=== PATIENT | female | born 1990 | race Caucasian/White ===

== ENCOUNTER 2018-11-25 19:10 | Emergency (ER) | payer OTHER ==
[2018-11-25] MEDS ORDERED: NS 0.9% 1000 ML** 2,000 ML IV ONE (19:53)
[2018-11-25] MEDS ORDERED: Ondansetron ODT TAB* 4 MG SL ONE (19:53)
[2018-11-25] MEDS ORDERED: Ondansetron INJ* 2 MG/ML VIAL IV ONE (20:04)
[2018-11-25 20:28] LABS: ABS Basophils 0.1 10^3/ul (0-0.2); ABS Eosinophils 0 10^3/ul (0-0.6); ABS Lymphocytes 1.7 10^3/ul (1.0-4.8); ABS Monocytes 0.3 10^3/ul (0-0.8); ABS Neutrophils 6.3 10^3/ul (1.5-7.7); ABS Nucleated RBC 0 10^3/ul; Eosinophil % 0.2 %; Hematocrit 45 % (35-47); Hemoglobin 14.7 g/dl (12.0-16.0); Lymphocyte % 20.1 %; Mean Corpuscular HGB Conc 33 g/dl (31-36); Mean Corpuscular Hemoglobin 29 pg (27-31); Mean Corpuscular Volume 89 fL (80-97); Mean Platelet Volume 8.5 fL (7.4-10.4); Nucleated Red Blood Cells % 0; Platelet Count 261 10^3/ul (150-450); Red Blood Count 4.99 10^6/ul (4.00-5.40); Red Cell Distribution Width 13 % (10.5-15); White Blood Count 8.3 10^3/ul (3.5-10.8)
[2018-11-25 20:45] LABS: ALT 16 U/L (7-52); AST 18 U/L (13-39); Albumin/Globulin Ratio 1.7 (1-3); Alkaline Phosphatase 58 U/L (34-104); Anion Gap 7 mmol/L (2-11); BUN/Creatinine Ratio 13.3 (8-20); Blood Urea Nitrogen 11 mg/dL (6-24); CO2 Carbon Dioxide 24 mmol/L (22-32); Calcium 9.9 mg/dL (8.6-10.3); Chloride 107 mmol/L (101-111); EGFR Non-African American 81.9 (>60); Globulin 2.9 g/dL (2-4); Glucose 96 mg/dL (70-100); Potassium 4.1 mmol/L (3.5-5.0); Sodium 138 mmol/L (135-145); Total Protein 7.9 g/dL (6.4-8.9)
[2018-11-25 20:51] LABS: HCG Pregnancy < 0.60 mIU/mL
--- NOTE | 2018-11-25 21:01 | ED ---
GI/ HPI - HPI Summary HPI Summary: 27-year-old female presents with left lower quadrant pain for the past couple days. States she started having diarrhea yesterday. She never had this pain before. No noticed some blood when she wipes. Had only trace amount. No nausea or vomiting. She denies any fever. She denies any cough. No urinary symptoms. No abnormal vaginal discharge. States she's had a normal pap smear a couple weeks ago. No one else is sick. Did not eat anything different. has not had a normal appetite today. - History of Current Complaint Chief Complaint: EDAbdPain Time Seen by Provider: 11/25/18 19:59 Stated Complaint: ABD PAIN Pain Intensity: 6 - Allergy/Home Medications Allergies/Adverse Reactions: Allergies Allergy/AdvReac Type Severity Reaction Status Date / Time amoxicillin Allergy Rash Verified 11/25/18 19:29 Home Medications: Home Medications Norethindrone AC-Eth Estradiol [Harry .5 1.5-30 mg-Mcg] 1 tab PO DAILY 11/25 [History Confirmed 11/25/18] PMH/Surg Hx/FS Hx/Imm Hx Endocrine/Hematology History: Denies: Hx Anticoagulant Therapy Respiratory History: Denies: Hx Asthma Infectious Disease History: No Infectious Disease History: Denies: Traveled Outside the [place] in Last 30 Days - Family History Known Family History: Positive: Other - no GI disorders - Social History Alcohol Use: None Substance Use Type: Reports: None Smoking Status (MU): Never Smoked Tobacco Review of Systems Negative: Fever Negative: Chest Pain Negative: Shortness Of Breath Positive: Abdominal Pain, Diarrhea. Negative: Vomiting, Nausea All Other Systems Reviewed And Are Negative: Yes Physical Exam Triage Information Reviewed: Yes Vital Signs On Initial Exam: Initial Vitals Temp Pulse Resp BP Pulse Ox 99.2 F 88 16 161/98 98 11/25/18 19:25 11/25/18 19:25 11/25/18 19:25 11/25/18 19:25 11/25/18 19:25 Vital Signs Reviewed: Yes Appearance: Positive: Well-Appearing Skin: Positive: Warm, Dry Head/Face: Positive: Normal Head/Face Inspection Eyes: Positive: Normal, EOMI, JUDY, Conjunctiva Clear ENT: Positive: Normal ENT inspection, Pharynx normal, TMs normal Respiratory/Lung Sounds: Positive: Clear to Auscultation, Breath Sounds Present Cardiovascular: Positive: Normal, RRR Abdomen Description: Positive: Soft, Other: - tenderness in LLQ, no rebound. Negative: CVA Tenderness (L) Bowel Sounds: Positive: Present Musculoskeletal: Positive: Normal Neurological: Positive: Normal Psychiatric: Positive: Normal Diagnostics - Vital Signs Vital Signs Temp Pulse Resp BP Pulse Ox 11/25/18 20:13 88 149/89 97 11/25/18 19:25 99.2 F 88 16 161/98 98 - Laboratory Lab Results: Lab Results 11/25/18 11/25/18 Range/Units 20:19 20:19 WBC 8.3 (3.5-10.8) 10^3/ul RBC 4.99 (4.00-5.40) 10^6/ul Hgb 14.7 (12.0-16.0) g/dl Hct 45 (35-47) % MCV 89 (80-97) fL MCH 29 (27-31) pg MCHC 33 (31-36) g/dl RDW 13 (10.5-15) % Plt Count 261 (150-450) 10^3/ul MPV 8.5 (7.4-10.4) fL Neut % (Auto) 75.5 % Lymph % (Auto) 20.1 % [place] % (Auto) 3.5 % Eos % (Auto) 0.2 % Baso % (Auto) 0.7 % Absolute Neuts (auto) 6.3 (1.5-7.7) 10^3/ul Absolute Lymphs (auto) 1.7 (1.0-4.8) 10^3/ul Absolute Monos (auto) 0.3 (0-0.8) 10^3/ul Absolute Eos (auto) 0 (0-0.6) 10^3/ul Absolute Basos (auto) 0.1 (0-0.2) 10^3/ul Absolute Nucleated RBC 0 10^3/ul Nucleated RBC % 0 Sodium 138 (135-145) mmol/L Potassium 4.1 (3.5-5.0) mmol/L Chloride 107 (101-111) mmol/L Carbon Dioxide 24 (22-32) mmol/L Anion Gap 7 (2-11) mmol/L BUN 11 (6-24) mg/dL Creatinine 0.83 (0.51-0.95) mg/dL Est GFR ( Amer) 99.0 (>60) Est GFR (Non-Af Amer) 81.9 (>60) BUN/Creatinine Ratio 13.3 (8-20) Glucose 96 (70-100) mg/dL Calcium 9.9 (8.6-10.3) mg/dL Total Bilirubin 0.20 (0.2-1.0) mg/dL AST 18 (13-39) U/L ALT 16 (7-52) U/L Alkaline Phosphatase 58 (34-104) U/L Total Protein 7.9 (6.4-8.9) g/dL Albumin 5.0 (3.2-5.2) g/dL Globulin 2.9 (2-4) g/dL Albumin/Globulin Ratio 1.7 (1-3) Beta HCG, Quant < 0.60 mIU/mL Result Diagrams: 11/25/18 20:19 11/25/18 20:19 Lab Statement: Any lab studies that have been ordered have been reviewed, and results considered in the medical decision making process. - CT abd CT Interpretation Completed By: Radiologist Summary of CT Findings: IMPRESSION: 1. There is a small hiatal hernia and there is a small volume of oral contrast. in the distal esophagus, cannot exclude gastroesophageal reflux. 2. There may be mild descending colonic and sigmoid colonic diverticulosis and. there is subtle fat stranding adjacent to the distal descending colon. suspicious for mild acute diverticulitis or nonspecific colitis without abscess. or signs of gross perforation. - Ultrasound No standard instances Ultrasound Interpretation Completed By: Radiologist Summary of Ultrasound Findings: IMPRESSION: Normal pelvic ultrasound. Re-Evaluation - Re-Evaluation First Eval Re-Evaluation Time: 21:26 Comment: discussed u/s results GIGU Course/Dx - Course Course Of Treatment: 27-year-old female presents with left lower quadrant pain for the past couple days. States she started having diarrhea yesterday. She never had this pain before. No noticed some blood when she wipes. Had only trace amount. No nausea or vomiting. She denies any fever. She denies any cough. No urinary symptoms. No abnormal vaginal discharge. States she's had a normal pap smear a couple weeks ago. No one else is sick. Did not eat anything different. On exam tenderness left lower quadrant. No rebound. wbc normal. CRP elevated. Ultrasound normal. CT shows early diverticulitis. will treat with cipro and flagyl. gave diverticulitis diet instruction. patient understand and agrees with plan. - Diagnoses Differential Diagnoses - Female: Diverticulosis, Gastroenteritis (Viral), Gastroenteritis (Bacterial) Provider Diagnoses: Diverticulitis Discharge - Sign-Out/Discharge Documenting (check all that apply): Patient Departure Patient Received Moderate/Deep Sedation with Procedure: No - Discharge Plan Condition: Good Disposition: HOME Prescriptions: Ciprofloxacin TAB* [Cipro 500 MG TAB*] 500 mg PO BID #13 tab metroNIDAZOLE [Flagyl 500 MG TAB] 500 mg PO TID #20 tab Patient Education Materials: Diverticulitis (ED), Diverticulitis Diet (ED) Referrals: Darline Rhodes MD [Primary Care Provider] - Additional Instructions: Take ciprofloxacin twice a day for 7 days, first dose given in ED Take Flagyl every 8 hours for 7 days, first dose given in ED Follow clear liquid diet until symptoms improve Return to ED if unable to keep anything down or any new or worsening symptoms - Billing Disposition and Condition Condition: GOOD Disposition: Home
[2018-11-25 21:05] LABS: C Reactive Protein 19.94 mg/L (<8.01)
[2018-11-25] MEDS ORDERED: Iohexol 300* (CONTRAST) 10 ML SDV IV ONE (21:21)
[2018-11-25] MEDS ORDERED: Ketorolac INJ* 30 MG/ML 1 ML VIAL IV PUSH ONE (21:23)
[2018-11-25] MEDS ORDERED: metroNIDAZOLE TAB* 250 MG PO ONE (23:16)
[2018-11-25] MEDS ORDERED: Ciprofloxacin TAB* 500 MG PO ONE (23:16)
[2018-11-25 23:32] VITALS: BP 137/86
== END 2018-11-25 23:38 | disposition home or self-care (01) ==
LOC: ED 19:10
DX: K57.92 Diverticulitis of intestine, part unspecified, without perforation or abscess without bleeding (principal); K44.9 Diaphragmatic hernia without obstruction or gangrene
CPT/HCPCS: 36415; 74177; 76830; 80053; 83690; 84702; 85025; 86140; 96361; 96374; 96375; 99283; A9270-GY; J1885; J2405; Q9967

== ENCOUNTER 2019-10-25 10:48 | Emergency (ER) | payer BC ==
--- NOTE | 2019-10-25 10:58 | ED ---
GI/ HPI - HPI Summary HPI Summary: This pt is a 28 y/o female presenting to [facility] c/o abd cramping and vaginal bleeding since yesterday. Her LMP was on 09/22/19 and states she was late on her period. She notes she has been trying to get . Pt reports she took 3 home tests 1 week ago and all 3 were positive. Pt states yesterday in the early hours of the morning she began to have abd cramping, similar to when she has had her period. Yesterday later in the day she began to have vaginal bleeding, which she states is similar to her period. Denies fever, nausea, vomiting, chest pain, SOB. Pt called [facility] and was told she would get answers later in the week so she decided to come to the ED today. - History of Current Complaint Chief Complaint: EDVaginalBleeding Time Seen by Provider: 10/25/19 10:54 Stated Complaint: 4 WEEKS PREG/BLEEDING AND CRAMPING PER PT Hx Obtained From: Patient Onset/Duration: Started Hours Ago, Still Present Timing: Lasting Hours Current Severity: Moderate Pain Intensity: 4 Location of Pain: Other - lower abdomen Pain Characteristics: Cramping Associated Signs and Symptoms: Positive: Abdominal Pain. Negative: Nausea, Vomiting, Fever Additional Signs & Symptoms: Positive: Vaginal Bleeding Aggravating Factor(s): Nothing Alleviating Factor(s): Nothing - Allergy/Home Medications Allergies/Adverse Reactions: Allergies Allergy/AdvReac Type Severity Reaction Status Date / Time amoxicillin Allergy Rash Verified 11/25/18 19:29 PMH/Surg Hx/FS Hx/Imm Hx Endocrine/Hematology History: Denies: Hx Anticoagulant Therapy, Hx Diabetes Cardiovascular History: Denies: Hx Hypertension Respiratory History: Denies: Hx Asthma History: Denies: Hx Renal Disease Infectious Disease History: No Infectious Disease History: Denies: Traveled Outside the [place] in Last 30 Days - Family History Known Family History: Positive: Other - no GI disorders - Social History Alcohol Use: None Substance Use Type: Reports: None Smoking Status (MU): Never Smoked Tobacco Review of Systems Negative: Fever, Chills Negative: Chest Pain Negative: Shortness Of Breath Positive: Abdominal Pain. Negative: Vomiting, Nausea Genitourinary: Other - POSITIVE: vaginal bleeding All Other Systems Reviewed And Are Negative: Yes Physical Exam - Summary Physical Exam Summary: Appearance: The patient is well-nourished in no acute distress and in no acute pain. Skin: The skin is warm and dry and skin color reflects adequate perfusion. HEENT: The head is normocephalic and atraumatic. The pupils are equal and reactive. The conjunctivae are clear and without drainage. Nares are patent and without drainage. Mouth reveals moist mucous membranes and the throat is without erythema and exudate. The external ears are intact. The ear canals are patent and without drainage. The tympanic membranes are intact. Neck: the neck is supple with full range of motion and non-tender. There are no carotid bruits. There is no neck vein distension. Respiratory: Chest is non-tender. Lungs are clear to auscultation and breath sounds are symmetrical and equal. Cardiovascular: Heart is regular rate and rhythm. There is no murmur or rub auscultated. There is no peripheral edema and pulses are symmetrical and equal. Abdomen: The abdomen is soft and non-tender. There are normal bowel sounds heard in all four quadrants and there is no organomegaly palpated. Musculoskeletal: There is no back tenderness noted. Extremities are non-tender with full range of motion. There is good capillary refill. There is no peripheral edema or calf tenderness elicited. Neurological: Patient is alert and oriented to person, place and time. Psychiatric: The patient has an appropriate affect and does not exhibit any anxiety or depression. Triage Information Reviewed: Yes Vital Signs On Initial Exam: Initial Vitals Temp Pulse Resp BP Pulse Ox 97.7 F 94 18 149/97 97 10/25/19 10:49 10/25/19 10:49 10/25/19 10:49 10/25/19 10:49 10/25/19 10:49 Vital Signs Reviewed: Yes Procedures - Sedation Patient Received Moderate/Deep Sedation with Procedure: No Diagnostics - Vital Signs Vital Signs Temp Pulse Resp BP Pulse Ox 10/25/19 10:49 97.7 F 94 18 149/97 97 - Laboratory Result Diagrams: 10/25/19 11:12 Lab Statement: Any lab studies that have been ordered have been reviewed, and results considered in the medical decision making process. Re-Evaluation - Re-Evaluation First Eval Re-Evaluation Time: 11:56 Comment: Reviewed lab results with patient. She will be discharged home. GIGU Course/Dx - Course Course Of Treatment: Ms. Shin's HCG here was essentially negative. Given the history I think this likely represents a completed miscarriage. There is a slight chance that this is early with bleeding and I recommended she follow up in a couple days for repeat test. - Diagnoses Provider Diagnoses: Miscarriage Discharge ED - Sign-Out/Discharge Documenting (check all that apply): Patient Departure - Discharge home - Discharge Plan Condition: Stable Disposition: HOME Patient Education Materials: Miscarriage (ED) Referrals: Stephanie Herman DO [Primary Care Provider] - [facility] [Provider Group] Additional Instructions: Follow up with [facility] this week. RETURN TO THE ED FOR ANY WORSENING OR NEW SYMPTOMS. - Billing Disposition and Condition Condition: STABLE Disposition: Home - Attestation Statements Document Initiated by Navi: Yes Documenting Scribe: Melisa Medrano Provider For Whom Scribe is Documenting (Include Credential): Michael Brooks MD Scribe Attestation: Melisa Clarke, scribed for Michael Brooks MD on 10/25/19 at 1204. Scribe Documentation Reviewed: Yes Provider Attestation: The documentation as recorded by the Melisa ambrocio accurately reflects the service I personally performed and the decisions made by me, Michael Brooks MD Status of Scribe Document: Viewed
--- OUTSIDE RECORDS SUMMARY | 2019-10-25 11:13 | XMS REPORT | Continuity of Care Document ---
:1990 External Reference #:[id number] Author Name Stephanie Herman, DO Address [address] [place] [id number] Problems Active Problems Provider Date Diverticulitis Onset: 11/26/2018 Social History Type Date Description Comments Sex Unknown Tobacco Use Start: Unknown Patient has never smoked Smoking Status Reviewed: 08/30/19 Patient has never smoked Allergies, Adverse Reactions, Alerts Active Allergies Reaction Severity Comments Date Amoxicillin Anhydrous Allergic urticaria 07/02/2019 Medications Active Medications SIG Qnty Indications Ordering Provider Date Ranitidine Acid take 1 tablet by 60tabs Neyda Weldon, 08/30/2019 Cotton Tier mouth twice MD 75mg Tablets daily Fluticasone 2 sprays daily 16units Unknown 10/28/2018 Propionate per nostril 50mcg/Act Nasal Suspension Immunizations CPT Code Status Date Vaccine Lot # [id number] Given 10/28/2018 Influenza Virus Vaccine, Quadrivalent, Split Virus, Im Use 0.5ML 97750 Given 10/28/2018 Flu < 65 years 38111 Given 10/28/2018 Influenza Virus Vaccine, Quadrivalent, Split, Preservative Free 59633 Given 10/28/2018 Flumist 34593 Given 10/28/2018 Flu High Dose 64266 Given 10/28/2018 Influenza Virus Vaccine, Split, Preserv Free, Intradermal Use 00576 Given 08/07/2017 Influenza Virus Vaccine, Quadrivalent, Split, Im Use 0.25ML 79802 Given 08/07/2017 Influenza Virus Vaccine, Quadrivalent, Split, Im Use 0.25ML 09666 Given 08/07/2017 Influenza Virus Vaccine, Quadrivalent, Split, Im Use 0.25ML 04552 Given 08/07/2017 Flu < 65 years 20665 Given 08/07/2017 Influenza Virus Vaccine, Quadrivalent, Split, Preservative Free 42048 Given 08/07/2017 Flumist 03127 Given 08/07/2017 Flu High Dose 53194 Given 08/07/2017 Influenza Virus Vaccine, Split, Preserv Free, Intradermal Use 26736 Refused 02/22/2016 Influenza Virus Vaccine, Quadrivalent, Split, Im Use 0.25ML 77700 Refused 02/22/2016 HPV Gardasil 9 Vital Signs Date Vital Result Comment 09/06/2019 1:15pm BP Systolic 128 mmHg BP Diastolic 80 mmHg Heart Rate 78 /min Body Temperature 98.1 F O2 % BldC Oximetry 99 % 08/30/2019 3:02pm BP Systolic 118 mmHg BP Diastolic 62 mmHg Weight 181.00 lb Heart Rate 81 /min Body Temperature 97.7 F O2 % BldC Oximetry 98 % Results Description No Information Available Procedures Description No Information Available Medical Devices Description No Information Available Encounters Type Date Location Provider Dx Diagnosis Office Visit 08/30/2019 [facility] Neyda Weldon MD K21.9 Gastro- esophageal 3:15p reflux disease without esophagitis Assessments Date Code Description Provider 09/06/2019 R10.10 Upper abdominal pain, unspecified Stephanie Herman, DO 08/30/2019 K21.9 Gastro-esophageal reflux disease without Neyda Weldon MD esophagitis Plan of Treatment No Information Available Functional Status Description No Information Available Mental Status Description No Information Available Referrals Description No Information Available
--- OUTSIDE RECORDS SUMMARY | 2019-10-25 11:13 | XMS REPORT | Continuity of Care Document ---
:1990 External Reference #:[id number] Author Name Stephanie Herman, DO Address [address] [place] [id number] Problems Active Problems Provider Date Diverticulitis Onset: 11/26/2018 Social History Type Date Description Comments Sex Unknown Tobacco Use Start: Unknown Patient has never smoked Smoking Status Reviewed: 08/30/19 Patient has never smoked Allergies, Adverse Reactions, Alerts Active Allergies Reaction Severity Comments Date Amoxicillin Anhydrous Allergic urticaria 07/02/2019 Medications Active Medications SIG Qnty Indications Ordering Provider Date Ranitidine HCL take one tab 60caps Stephanie Gillpratima, 09/06/2019 150mg twice daily DO Capsules Fluticasone 2 sprays daily 16units Unknown 10/28/2018 Propionate per nostril 50mcg/Act Nasal Suspension History Medications Ranitidine Acid take 1 tablet by 60tabs Neyda Weldon MD 08/30/2019 - Web Manager mouth twice 09/06/2019 75mg Tablets daily Immunizations CPT Code Status Date Vaccine Lot # [id number] Given 10/28/2018 Influenza Virus Vaccine, Quadrivalent, Split Virus, Im Use 0.5ML 12021 Given 10/28/2018 Flu < 65 years 04490 Given 10/28/2018 Influenza Virus Vaccine, Quadrivalent, Split, Preservative Free 86697 Given 10/28/2018 Flumist 61744 Given 10/28/2018 Flu High Dose 81473 Given 10/28/2018 Influenza Virus Vaccine, Split, Preserv Free, Intradermal Use 24462 Given 08/07/2017 Influenza Virus Vaccine, Quadrivalent, Split, Im Use 0.25ML 21171 Given 08/07/2017 Influenza Virus Vaccine, Quadrivalent, Split, Im Use 0.25ML 81250 Given 08/07/2017 Influenza Virus Vaccine, Quadrivalent, Split, Im Use 0.25ML 83843 Given 08/07/2017 Flu < 65 years 40563 Given 08/07/2017 Influenza Virus Vaccine, Quadrivalent, Split, Preservative Free 07452 Given 08/07/2017 Flumist 82614 Given 08/07/2017 Flu High Dose 07242 Given 08/07/2017 Influenza Virus Vaccine, Split, Preserv Free, Intradermal Use 84257 Refused 02/22/2016 Influenza Virus Vaccine, Quadrivalent, Split, Im Use 0.25ML 12161 Refused 02/22/2016 HPV Gardasil 9 Vital Signs Date Vital Result Comment 09/06/2019 1:15pm BP Systolic 128 mmHg BP Diastolic 80 mmHg Heart Rate 78 /min Body Temperature 98.1 F O2 % BldC Oximetry 99 % 08/30/2019 3:02pm BP Systolic 118 mmHg BP Diastolic 62 mmHg Weight 181.00 lb Heart Rate 81 /min Body Temperature 97.7 F O2 % BldC Oximetry 98 % Results Test Acquired Date Facility Test Result H/L Range Note Comp Metabolic 09/06/2019 [facility] Sodium 140 mmol/L Normal 135-145 [address] [place], [place] [id number] [phone] Potassium 4.0 mmol/L Normal 3.5-5.0 Chloride 105 mmol/L Normal 101-111 Co2 Carbon Dioxide 26 mmol/L Normal 22-32 Anion Gap 9 mmol/L Normal 2-11 Glucose 89 mg/dL Normal 70-100 Blood Urea Nitrogen 15 mg/dL Normal 6-24 Creatinine 0.72 mg/dL Normal 0.51-0.95 BUN/Creatinine Ratio 20.8 High 8-20 Calcium 9.6 mg/dL Normal 8.6-10.3 Total Protein 6.9 g/dL Normal 6.4-8.9 Albumin 4.5 g/dL Normal 3.2-5.2 Globulin 2.4 g/dL Normal 2-4 Albumin/Globulin Ratio 1.9 Normal 1-3 Total Bilirubin 0.30 mg/dL Normal 0.2-1.0 Alkaline Phosphatase 84 U/L Normal 34-104 Alt 19 U/L Normal 7-52 Ast 18 U/L Normal 13-39 Egfr Non- 95.8 >60 Egfr 115.9 >60 1 CBC Auto 09/06/2019 [facility] White Blood 7.6 10^3/uL Normal 3.5-10.[address] [place] [address] [phone] Red Blood Count 4.81 10^6/uL Normal 3.70-4.87 Hemoglobin 14.6 g/dL Normal 12.0-16.0 Hematocrit 43 % Normal 35-47 Mean Corpuscular Volume 89 fL Normal 80-97 Mean Corpuscular Hemoglobin 30 pg Normal 27-31 Mean Corpuscular HGB Conc 34 g/dL Normal 31-36 Red Cell Distribution Width 13 % Normal 10-15 Platelet Count 245 10^3/uL Normal 150-450 Mean Platelet Volume 8.6 fL Normal 7.4-10.4 Abs Neutrophils 5.1 10^3/uL Normal 1.5-7.7 Abs Lymphocytes 2.0 10^3/uL Normal 1.0-4.8 Abs Monocytes 0.4 10^3/uL Normal 0-0.8 Abs Eosinophils 0.1 10^3/uL Normal 0-0.6 Abs Basophils 0.0 10^3/uL Normal 0-0.2 Abs Nucleated RBC 0.0 10^3/uL Granulocyte % 67.2 % Lymphocyte % 25.9 % Monocyte % 5.2 % Eosinophil % 1.1 % Basophil % 0.6 % Nucleated Red Blood Cells % 0.0 Laboratory test 09/06/2019 [facility] C Reactive 9.41 mg/L High <8.[address] [place] [address] [phone] 1 Because ethnic data is not always readily available, this report includes an eGFR for both -Americans and non- Americans. The National Kidney Disease Education Program (NKDEP) does not endorse the use of the MDRD equation for patients that are not between the ages of 18 and 70, are , have extremes of body size, muscle mass, or nutritional status, or are non- or non-. According to the National Kidney Foundation, irrespective of diagnosis, the stage of the disease is based on the level of kidney function: Stage Description GFR(mL/min/1.73 m(2)) 1 Kidney damage with normal or decreased GFR 90 2 Kidney damage with mild decrease in GFR 60-89 3 Moderate decrease in GFR 30-59 4 Severe decrease in GFR 15-29 5 Kidney failure <15 (or dialysis) Procedures Description No Information Available Medical Devices Description No Information Available Encounters Type Date Location Provider Dx Diagnosis Office Visit 09/06/2019 [facility] Stephanie Herman DO R10.10 Upper abdominal pain, 1:15p unspecified Office Visit 08/30/2019 [facility] Wilian Weldon MD K21.9 Gastro- esophageal 3:15p reflux disease without esophagitis Assessments Date Code Description Provider 09/06/2019 R10.10 Upper abdominal pain, unspecified Stephanie Herman, DO 08/30/2019 K21.9 Gastro-esophageal reflux disease without Neyda Weldon MD esophagitis Plan of Treatment 09/06/2019 - Stephanie Herman, DOR10.10 Upper abdominal pain, unspecifiedAllNew Medication:Ranitidine HCL 150 mg - take one tab twice daily Functional Status Description No Information Available Mental Status Description No Information Available Referrals Description No Information Available
--- OUTSIDE RECORDS SUMMARY | 2019-10-25 11:13 | XMS REPORT | Continuity of Care Document ---
:1990 External Reference #:[id number] Author Name Neyda Weldon MD Address [address] [place] [address] Problems Active Problems Provider Date Diverticulitis Onset: [...] 1 tablet by 60tabs Neyda Weldon, 08/30/2019 Nail Kegger mouth twice MD 75mg Tablets daily Fluticasone 2 sprays daily 16units Unknown 10/28/2018 Propionate per nostril 50mcg/Act Nasal Suspension Immunizations CPT Code Status Date Vaccine Lot # [id number] Given 10/28/2018 Influenza Virus Vaccine, Quadrivalent, Split Virus, Im Use 0.5ML [id number] Given 10/28/2018 Flu < 65 years 69939 Given 10/28/2018 Influenza Virus Vaccine, Quadrivalent, Split, Preservative Free 38450 Given 10/28/2018 Flumist 86225 Given 10/28/2018 Flu High Dose 17192 Given 10/28/2018 Influenza Virus Vaccine, Split, Preserv Free, Intradermal Use 45604 Given 08/07/2017 Influenza Virus Vaccine, Quadrivalent, Split, Im Use 0.25ML 65296 Given 08/07/2017 Influenza Virus Vaccine, Quadrivalent, Split, Im Use 0.25ML 98265 Given 08/07/2017 Influenza Virus Vaccine, Quadrivalent, Split, Im Use 0.25ML 55153 Given 08/07/2017 Flu < 65 years 65028 Given 08/07/2017 Influenza Virus Vaccine, Quadrivalent, Split, Preservative Free 48540 Given 08/07/2017 Flumist 47472 Given 08/07/2017 Flu High Dose 87534 Given 08/07/2017 Influenza Virus Vaccine, Split, Preserv Free, Intradermal Use [id number] Refused 02/22/2016 Influenza Virus Vaccine, Quadrivalent, Split, Im Use 0.25ML 50666 Refused 02/22/2016 HPV Gardasil 9 Vital Signs Date Vital Result Comment 08/30/2019 3:02pm BP Systolic 118 mmHg BP Diastolic 62 mmHg Weight 181.00 lb Heart Rate 81 /min Body Temperature 97.7 F O2 % BldC Oximetry 98 % 10/28/2018 11:54am BP Systolic 124 mmHg Height 62.00 inches 5'2.00" Weight 170.00 lb Heart Rate 95 /min Body Temperature 97.8 F O2 % BldC Oximetry 98 % BMI (Body Mass Index) 31.09 kg/m2 Results Description No Information Available Procedures Description No Information Available Medical Devices Description No Information Available Encounters Type Date Location Provider Dx Diagnosis Office Visit 08/30/2019 [facility] Neyda Weldon MD K21.9 Gastro- esophageal 3:15p reflux disease without esophagitis Assessments Date Code Description Provider 08/30/2019 K21.9 Gastro-esophageal reflux disease without Neyda Weldon MD esophagitis Plan of Treatment 08/30/2019 - Neyda Weldon MDK21.9 Gastro-esophageal reflux disease without esophagitisAllNew Medication:Ranitidine Acid Nail Kegger 75 mg - take 1 tablet by mouth twice daily Functional Status Description No Information Available Mental Status Description No Information Available Referrals Description No Information Available
--- OUTSIDE RECORDS SUMMARY | 2019-10-25 11:13 | XMS REPORT | Continuity of Care Document ---
:1990 External Reference #:[id number] Author Name Norma Argueta PA-C Address [address] [place] [address] Care Team Providers Name Role Phone Stephanie Herman DO Care Team Information Wood Miller [phone] Problems Active Problems Provider Date C-reactive protein abnormal Norma Argueta PA-C Onset: 10/05/2019 Diverticulitis of colon Norma Argueta PA-C Onset: 10/05/2019 Periumbilical pain Norma Argueta PA-C Onset: 10/05/2019 Abdominal pain Norma Argueta PA-C Onset: 10/05/2019 Gastroesophageal reflux disease Norma Argueta PA-C Onset: 10/05/2019 Social History Type Date Description Comments Sex Unknown Tobacco Use Start: Unknown Patient has never smoked Smoking Status Reviewed: 10/05/19 Patient has never smoked Allergies, Adverse Reactions, Alerts Active Allergies Reaction Severity Comments Date Amoxicillin Anhydrous Allergic urticaria 10/05/2019 Medications Active Medications SIG Qnty Indications Ordering Provider Date Suprep Bowel Prep as directed 1units K57.32 Kelly 10/05/2019 Kit MD Raghu 17.5-3.13-1.6GM/177M L Solution Famotidine 1 by mouth twice 60tabs K21.9 Kelly 10/05/2019 40mg a day MD Raghu Tablets Fluticasone 2 sprays daily 16units Unknown 10/28/2018 Propionate per nostril Nasal 50mcg/Act Suspension History Medications Ranitidine HCL take one tab 60caps K21.9 Stephanie Herman DO 09/06/2019 - twice daily 10/05/2019 150mg Capsules Immunizations CPT Code Status Date Vaccine Lot # [id number] Given 10/28/2018 Influenza Virus Vaccine, Quadrivalent, Split, Preservative Free 64446 Given 10/28/2018 Influenza Virus Vaccine, Quadrivalent, Split, Preservative Free 36160 Given 10/28/2018 Influenza Vaccine Quadrivalent, Live For Intranasal Use 11653 Given 10/28/2018 Influenza Vaccine Split Virus Preservative Free Im Use 81209 Given 10/28/2018 Influenza Virus Vaccine, Split, Preserv Free, Intradermal Use 82039 Given 08/07/2017 Influenza Virus Vaccine, Quadrivalent, Split, Preservative Free 73202 Given 08/07/2017 Influenza Virus Vaccine, Quadrivalent, Split, Preservative Free 72972 Given 08/07/2017 Influenza Vaccine Quadrivalent, Live For Intranasal Use 29729 Given 08/07/2017 Influenza Vaccine Split Virus Preservative Free Im Use 30792 Given 08/07/2017 Influenza Virus Vaccine, Split, Preserv Free, Intradermal Use Vital Signs Date Vital Result Comment 10/05/2019 12:50pm Height 62 inches 5'2" Weight 182.00 lb BP Systolic 126 mmHg BP Diastolic 84 mmHg Heart Rate 86 /min BMI (Body Mass Index) 33.3 kg/m2 Results Test Acquired Date Facility Test Result H/L Range Note Comp Metabolic Panel 09/06/2019 N2N/CCD Import Sodium 140 mmol/L 135- 145 Potassium 4.0 mmol/L 3.5-5.0 Chloride 105 mmol/L 101-111 Co2 Carbon Dioxide 26 mmol/L 22-32 Anion Gap 9 mmol/L 2-11 Glucose 89 mg/dL 70-100 Blood Urea Nitrogen 15 mg/dL 6-24 Creatinine 0.72 mg/dL 0.51-0.95 BUN/Creatinine Ratio 20.8 1 High 8-20 Calcium 9.6 mg/dL 8.6-10.3 Total Protein 6.9 g/dL 6.4-8.9 Albumin 4.5 g/dL 3.2-5.2 Globulin 2.4 g/dL 2-4 Albumin/Globulin Ratio 1.9 1 1-3 Total Bilirubin 0.30 mg/dL 0.2-1.0 Alkaline Phosphatase 84 U/L 34-104 Alt 19 U/L 7-52 Ast 18 U/L 13-39 Egfr Non- 95.8 1 Egfr 115.9 1 1 CBC Auto Diff 09/06/2019 N2N/CCD Import White Blood Count 7.6 10^3/uL 3.5-10.8 Red Blood Count 4.81 10^6/uL 3.70-4.87 Hemoglobin 14.6 g/dL 12.0-16.0 Hematocrit 43 % 35-47 Mean Corpuscular Volume 89 fL 80-97 Mean Corpuscular Hemoglobin 30 pg 27-31 Mean Corpuscular HGB Conc 34 g/dL 31-36 Red Cell Distribution Width 13 % 10-15 Platelet Count 245 10^3/uL 150-450 Mean Platelet Volume 8.6 fL 7.4-10.4 Abs Neutrophils 5.1 10^3/uL 1.5-7.7 Abs Lymphocytes 2.0 10^3/uL 1.0-4.8 Abs Monocytes 0.4 10^3/uL 0-0.8 Abs Eosinophils 0.1 10^3/uL 0-0.6 Abs Basophils 0.0 10^3/uL 0-0.2 Abs Nucleated RBC 0.0 10^3/uL Granulocyte % 67.2 % Lymphocyte % 25.9 % Monocyte % 5.2 % Eosinophil % 1.1 % Basophil % 0.6 % Nucleated Red Blood Cells % 0.0 1 Lab Results 09/06/2019 N2N/CCD Import C Reactive Protein 9.41 mg/L High CBC W/Auto 09/06/2019 [facility] White Blood Count <pending> Differential(!) Ser Auto CNT RBC Red Blood Count <pending> Hemoglobin Blood <pending> Hematocrit <pending> MCV (Corpuscular Volume) <pending> MCH (Corpuscular Hemoglobin) <pending> MCHC (Corpuscular Hemog Conc) <pending> RDW <pending> Platelet Count Blood Auto CNT <pending> MPV <pending> Lymph% <pending> Payne% <pending> Neutrophil % <pending> Absolute Lymphocytes <pending> Absolute Monocytes <pending> Absolute Neutrophils <pending> CMP(!) 09/06/2019 [facility] Sodium(!) <pending> Potassium(!) <pending> Chloride Serum/Plasma(!) <pending> Carbon Dioxide Ser/Plasm(!) <pending> BUN - Urea Nitrogen(!) <pending> Calcium Ser/Plasma Mass/Vol(!) <pending> Creatinine Serum Mass/Vol(!) <pending> Glucose Serum(!) <pending> BUN/Creatinine Ratio(!) <pending> Albumin Serum/Plasma(!) <pending> Alkaline Phosphatase(!) <pending> Bilirubin Total Mass/Vol(!) <pending> Ast - Sgot <pending> Alt - SGPT <pending> Protein Total <pending> Laboratory test 09/06/2019 [facility] C-Reative Protein <pending> finding 1 Because ethnic data is not always [...] Medical Devices Description No Information Available Encounters Description No Information Available Assessments Date Code Description Provider 10/05/2019 K21.9 Gastro-esophageal reflux disease without Norma Argueta PA-C esophagitis 10/05/2019 R10.10 Upper abdominal pain, unspecified YANI Lucas 10/05/2019 R10.33 Periumbilical pain Norma Argueta PA-C 10/05/2019 K57.32 Diverticulitis of large intestine YANI Lucas without perforation or abscess without bleeding 10/05/2019 R79.82 Elevated C-reactive protein (CRP) YANI Lucas Plan of Treatment Future Appointment(s):12/13/2019 9:30 am - Kelly Krishnamur[facility]10/05/2019 - YANI Lucas-CK21.9 Gastro-esophageal reflux disease without esophagitisNew Medication:Famotidine 40 mg - 1 by mouth twice a dayR10.10 Upper abdominal pain, [id number] Periumbilical painK57.32 Diverticulitis of large intestine without perforation or abscess without bleedingNew Medication:Suprep Bowel Prep Kit 17.5-3.13-1.6 GM/177ML - as [id number] Elevated C-reactive protein (CRP) Functional Status Description No Information Available Mental Status Description No Information Available Referrals Description No Information Available
[2019-10-25 11:23] LABS: ABS Eosinophils 0.1 10^3/ul (0-0.6); ABS Lymphocytes 1.4 10^3/ul (1.0-4.8); ABS Monocytes 0.3 10^3/ul (0-0.8); ABS Neutrophils 2.5 10^3/ul (1.5-7.7); Eosinophil % 1.6 %; Hematocrit 40 % (35-47); Hemoglobin 13.5 g/dL (12.0-16.0); Mean Corpuscular HGB Conc 33 g/dL (31-36); Mean Corpuscular Hemoglobin 30 pg (27-31); Mean Corpuscular Volume 89 fL (80-97); Platelet Count 245 10^3/uL (150-450); Red Blood Count 4.55 10^6 /uL (3.70-4.87); Red Cell Distribution Width 13 % (10-15); White Blood Count 4.4 10^3/uL (3.5-10.8)
[2019-10-25 12:26] VITALS: BP 136/80
== END 2019-10-25 12:26 | disposition home or self-care (01) ==
LOC: ED 10:48
DX: O03.9 Complete or unspecified spontaneous abortion without complication (principal); Z3A.00 Weeks of gestation of pregnancy not specified; Z88.0 Allergy status to penicillin
CPT/HCPCS: 36415; 84702; 85025; 99282